=== PATIENT | female | born 1960 | race Caucasian/White ===

== ENCOUNTER 2016-10-26 01:16 | Emergency (ER) | payer BC | END 2016-10-26 01:55 | disposition home or self-care (01) | DX: L98.9 Disorder of the skin and subcutaneous tissue, unspecified (principal) ==

== ENCOUNTER 2017-04-25 19:03 | Emergency (ER) | payer BC ==
--- NOTE | 2017-04-25 20:17 | ED Physician Documentation ---
PD HPI LOWER EXT INJURY - Stated complaint Stated Complaint: RT TOE PAIN - Chief complaint Chief Complaint: General - History obtained from History obtained from: Patient - History of Present Illness PD HPI LOW EXT INJURY LOCATION: Right, Toe (middle) Type of injury: Blunt / blow (a bottle fell and landed directly on end part of toe, with marked pain and swelling. No injury to foot nor ankle.) Where injury occurred: Home Timing - onset: Today Timing - duration: Hours (1) Timing - details: Abrupt onset, Still present Worsened by: Moving, Palpating Associated symptoms: Swelling. 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 HEENT: Other Derm: Other - Present Medications Home Medications: Ambulatory Orders Medication Instructions Recorded Confirmed Clonazepam 1 tab PO .FREQ 04/14/16 04/25/17 Tramadol HCl 50 mg PO Q6H PRN #20 tablet 04/14/16 04/25/17 buPROPion [Wellbutrin Sr] 300 mg PO DAILY 04/14/16 04/25/17 Ondansetron HCl [Zofran] 4 mg PO Q6H PRN #20 tablet 04/25/17 Tramadol HCl 50 mg PO Q6H PRN #20 tablet 04/25/17 oxyCODONE [Roxicodone] 5 mg PO Q4-6H PRN #10 tablet 04/25/17 - Allergies Allergies/Adverse Reactions: Allergies Allergy/AdvReac Type Severity Reaction Status Date / Time Sulfa (Sulfonamide Allergy Nausea Verified 04/25/17 19:12 Antibiotics) - Social History Does the pt smoke?: No Smoking Status: Never smoker Does the pt drink ETOH?: No Does the pt have substance abuse?: No - Immunizations Immunizations are current?: Yes - POLST Patient has POLST: No PD ED PE NORMAL - Vitals Vital signs reviewed: Yes - General General: Alert and oriented X 3, Well developed/nourished - Derm Derm: Normal color, Warm and dry - Extremities Extremities: Other (rigth middle toe distal aspect with swelling an dsoem lifting of nailbed area without notable subungual hematoma (has arabic on nail but still can see the base).) - Neuro Neuro: No motor deficit, No sensory deficit Results - Vitals Vitals: Oxygen O2 Source Room air - Rads (name of study) toe Radiology: Prelim report reviewed, EMP read contemporaneously (comminuted distal phalanx fracture. Nonarticular. ) PD MEDICAL DECISION MAKING - ED course Complexity details: reviewed results (broken tip of toe. ), considered differential (not notable subungual hematoma per se, but tip of toe is swollen including under nailbed. No drainage attempted. ), d/w patient Departure - Departure Disposition: Home, Self Care Clinical Impression: Fracture of distal phalanx of toe Condition: Stable Record reviewed to determine appropriate education?: Yes Instructions: ED Fx Toe Closed Follow-Up: [facility] [Provider Group] Prescriptions: oxyCODONE [Roxicodone] 5 mg PO Q4-6H PRN #10 tablet PRN Reason: Pain Tramadol HCl 50 mg PO Q6H PRN #20 tablet PRN Reason: Pain Ondansetron HCl [Zofran] 4 mg PO Q6H PRN #20 tablet PRN Reason: Nausea / Vomiting Comments: Firm soled shoe or whatever is most comfortable for walking. Misha tape is less likely to help with this he can try it. Ice to the area periodically to help reduce swelling. Tramadol if needed for pain. Add oxycodone if needed for worse pain in the short-term. Use Zofran along with it to reduce nausea. This will slowly heal over 3-4 weeks. However the worst of the pain will decrease as the swelling goes down and initial healing starts, so the first week or so. Discharge Date/Time: 04/25/17 21:57
[2017-04-25] MEDS ORDERED: traMADol 50 MG TABLET PO STA ×2 (20:31→21:34)
[2017-04-25] MEDS ORDERED: traMADol 50 MG TABLET PO ONE ×2 (20:44→21:49)
[2017-04-25] MEDS ORDERED: ONDANSETRON ODT 4 MG TABLET TL STA (21:34)
[2017-04-25] MEDS ORDERED: oxyCODONE/ACET 5/325 Prepack 4 PO STA (21:34)
--- NOTE | 2017-04-25 21:36 | XRAY Preliminary Report ---
Exam: XR Toe(s) RT IMPRESSION: 1. Acute comminuted fracture of the right third distal phalanx tuft. 2. No dislocation. 3. Diffuse right third toe swelling. [facility] SITE ID: [id number]
--- NOTE | 2017-04-25 21:47 | XRAY Report ---
EXAM: RIGHT THIRD TOE RADIOGRAPHY EXAM DATE: 04/25/2017 09:06 PM. CLINICAL HISTORY: Dropped bottle of BBQ on middle toe right foot. COMPARISON: None. TECHNIQUE: 3 views. FINDINGS: Bones: Acute comminuted fracture of the right third distal phalanx tuft. Joints: Normal. No subluxations. Soft Tissues: Marked right third toe swelling. IMPRESSION: 1. Acute comminuted fracture of the right third distal phalanx tuft. 2. No dislocation. 3. Diffuse right third toe swelling. [facility] Referring Provider Line: [phone] SITE ID: [id number]
[2017-04-25] MEDS ORDERED: oxyCODONE/ACET 5/325 Prepack 4 PO ONE (21:49)
[2017-04-25] MEDS ORDERED: ONDANSETRON ODT 4 MG TABLET ONE (21:49)
[2017-04-25 21:55] VITALS: BP 116/75
== END 2017-04-25 21:57 | disposition home or self-care (01) ==
LOC: ED 19:03
DX: S92.531A Displaced fracture of distal phalanx of right lesser toe(s), initial encounter for closed fracture (principal); W20.8XXA Other cause of strike by thrown, projected or falling object, initial encounter; Y92.019 Unspecified place in single-family (private) house as the place of occurrence of the external cause
CPT/HCPCS: 73660; 99283; A9270; Q0162

== ENCOUNTER 2019-11-29 15:55 | Outpatient (CLI) | payer BC | END 2019-11-29 15:56 | disposition home or self-care (01) | LOC: COV 15:55 | PROVIDERS: ATTEND Family Medicine | DX: M79.10 Myalgia, unspecified site (principal); J02.9 Acute pharyngitis, unspecified; R43.9 Unspecified disturbances of smell and taste | CPT/HCPCS: 81599 ==

== ENCOUNTER 2020-12-10 16:59 | Outpatient (CLI) | payer BC | END 2020-12-10 17:00 | disposition home or self-care (01) | LOC: COV 16:59 | PROVIDERS: ATTEND Family Medicine | DX: Z20.822 Contact with and (suspected) exposure to COVID-19 (principal) ==

== ENCOUNTER 2021-12-30 16:10 | Outpatient (CLI) | payer BC ==
--- NOTE | 2021-12-30 16:49 | XRAY Report ---
PROCEDURE: Chest 2 View X-Ray INDICATIONS: PRE-OP FOR COSMETIC SURGERY, LIPOSUCTION TECHNIQUE: 2 view(s) of the chest. COMPARISON: None. FINDINGS: Surgical changes and devices: None. Lungs and pleura: No pleural effusions or pneumothorax. Lungs are clear. Mediastinum: Mediastinal contours are normal. Heart size is normal. Bones and chest wall: No suspicious bony abnormalities. Soft tissues appear unremarkable. IMPRESSION: Chest without acute cardiopulmonary abnormalities. No focal airspace disease. Reviewed by: Fritz Schaeffer MD on 12/30/2021 4:47 PM PDT Approved by: Fritz Schaeffer MD on 12/30/2021 4:47 PM PDT Station ID: [id number]
== END 2021-12-30 16:11 | disposition home or self-care (01) ==
LOC: DI 16:10
PROVIDERS: ATTEND Physician Assistant
DX: Z01.810 Encounter for preprocedural cardiovascular examination (principal)

== ENCOUNTER 2022-09-03 16:12 | Emergency (ER) | payer BC, OTHER ==
[2022-09-03 16:24] VITALS: BP 132/77
[2022-09-03] MEDS ORDERED: oxyCODONE 5 MG TABLET PO STA (17:08)
--- NOTE | 2022-09-03 17:12 | XRAY Report ---
PROCEDURE: Foot 3 View RT INDICATIONS: Trauma TECHNIQUE: 3 views of the foot were acquired. COMPARISON: Right third toe radiographs 04/25/2017. FINDINGS: Bones: No acute fractures or dislocations. No suspicious bony lesions. Soft tissues: No tibiotalar joint effusion. Achilles tendon appears normal. IMPRESSION: No acute fracture demonstrated. Reviewed by: Jaswinder Dsouza MD on 09/03/2022 5:10 PM [facility] Approved by: Jaswinder Dsouza MD on 09/03/2022 5:10 PM [facility] Station ID: [id number]
[2022-09-03] MEDS ORDERED: ONDANSETRON ODT 4 MG TABLET TL STA (17:20)
[2022-09-03] MEDS ORDERED: ONDANSETRON ODT 4 MG Prepack 2 TL PRN (17:25)
[2022-09-03] MEDS ORDERED: oxyCODONE/ACET 5/325 Prepack 4 PO STA (17:25)
--- NOTE | 2022-09-03 17:27 | ED Physician Documentation ---
PD HPI LOWER EXT INJURY - Stated complaint Stated Complaint: R TOE INJURY - Chief complaint Chief Complaint: Trauma Ext - History obtained from History obtained from: Patient - Additional information Additional information: Is a 62-year-old female presenting for evaluation of right middle toe pain after stubbing it against a bedpost this afternoon. She does not take a blood thinner. She has pain with ambulation.She has not tried any medications for it. Denies injuries elsewhere. 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 HEENT: Other Derm: Other - Present Medications Home Medications: Ambulatory Orders Medication Instructions Recorded Confirmed buPROPion [Wellbutrin Sr] 300 mg PO DAILY 04/14/16 08/13/17 clonazePAM [Clonazepam] 1 tab PO .FREQ 04/14/16 08/13/17 Ondansetron Odt [Zofran] 4 mg TL Q6H PRN #10 tablet 09/03/22 Oxycodone HCl/Acetaminophen 1 each PO Q6H PRN #10 tablet 09/03/22 [Percocet 5-325 mg Tablet] - Allergies Allergies/Adverse Reactions: Allergies Allergy/AdvReac Type Severity Reaction Status Date / Time Sulfa (Sulfonamide Allergy Nausea Verified 09/03/22 16:22 Antibiotics) - Social History Does the pt smoke?: No Smoking Status: Never smoker Does the pt drink ETOH?: No Does the pt have substance abuse?: No - Immunizations Immunizations are current?: Yes - POLST Patient has POLST: No PD ED PE NORMAL - General General: Alert and oriented X 3, No acute distress, Well developed/nourished - HEENT HEENT: Atraumatic - Cardiac Cardiac: Strong equal pulses - Respiratory Respiratory: No respiratory distress - Extremities Extremities: Other (Bruising, swelling to right middle toe at the proximal phalanx) - Neuro Neuro: No motor deficit, No sensory deficit Results - Vitals Vitals: Vital Signs - 24 hr 09/03/22 16:20 Temperature 36.6 C Heart Rate 89 Respiratory 16 Rate Blood Pressure 132/77 H O2 Saturation 98 Oxygen O2 Source Room air PD Medical Decision Making - ED course Complexity details: reviewed results, re-evaluated patient ED course: Patient presenting for evaluation of injury to her right middle toe. She has bruising and mild swelling. No injuries elsewhere. She is not on a blood thinner. An x-ray was obtained to evaluate for fracture or dislocation. Foot x-ray was read as negative but I have concerns for fracture and requested a dedicated toe as I feel there was a nondisplaced fracture seen on the foot x-ray that radiologist did not see.There is a toe fracture which is more clearly seen on the toe x-ray. I reviewed these results with the patient. She was placed into a jose splint. She did not want crutches. She is comfortable with plan for discharge and advised on concerning symptoms to return for. Departure - Departure Disposition: 01 Home, Self Care Clinical Impression: Toe fracture, right Qualifiers: Encounter type: initial encounter Toe: lesser toe Fracture type: closed Phalanx: proximal Fracture alignment: nondisplaced Qualified Code(s): S92.514A - Nondisplaced fracture of proximal phalanx of right lesser toe(s), initial encounter for closed fracture Condition: Stable Instructions: ED Fx Toe Closed Prescriptions: Oxycodone HCl/Acetaminophen [Percocet 5-325 mg Tablet] 1 each PO Q6H PRN #10 tablet PRN Reason: pain Ondansetron Odt [Zofran] 4 mg TL Q6H PRN #10 tablet PRN Reason: Nausea / Vomiting Comments: I believe that your x-ray shows a nondisplaced toe fracture involving your middle toe on the right.We will treat this with a jose tape to the adjacent toe.It may take several weeks for this to heal. I have sent a small amount of pain medication to [facility] in [place]. Please use this only as needed. Please have follow-up with your primary care doctor. Return to the ER with any worsening symptoms such as increased pain, swelling or any new concerns. I am prescribing a short course of narcotic pain medication for you. These are potentially dangerous and addictive medications that should be used carefully. These medications may constipate you. Take an fvhq-owk-canxtmi stool softener (docusate) twice daily with plenty of water while taking these medications. If you go 24 hours without a bowel movement, take mrwx-yfa-xkyzxao miralax, per package instructions. Do not drink or drive while taking these medications. If you received narcotic or sedating medications while in the emergency department, do not drive for 24 hours. Store this medication in a safe, secure place and out of reach of children. It is a violation of federal law to give or sell this medication to another person or to use in a manner other than prescribed. The ED will not refill narcotic prescriptions, including prescriptions lost or stolen. To dispose of unwanted medications: 1. [facility] [address] in [place] has a medication drop box. They accept prescription medications (in pill form) Wednesday through Wednesday 9:00 a.m. to 5:00 p.m. 2. [facility] [employer] accepts prescription medications (in pill form only) for disposal year round. Call for more information. 3. Contact the [facility] for the next [facility] sponsored prescription drug collection event. , [phone], or [phone]; Note that many narcotic pain relievers also contain Tylenol/acetaminophen. Please ensure that your total dose of acetaminophen from all sources does not exceed 3 g (3000 mg) per day. Discharge Date/Time: 09/03/22 18:07
--- NOTE | 2022-09-03 17:50 | XRAY Report ---
PROCEDURE: Toe(s) RT INDICATIONS: middle toe pain TECHNIQUE: 2 views of the middle toe(s) acquired. COMPARISON: Correlation is made with the accompanying foot plain films FINDINGS: Bones: There is a mildly displaced fracture seen involving the distal aspect of the proximal phalanx of the third toe. This is not clearly demonstrated on the recently performed foot plain films. Soft tissues: No suspicious soft tissue densities. IMPRESSION: Mildly displaced third toe fracture. Reviewed by: Idris Hudson MD on 09/03/2022 4:49 PM [place] Approved by: Idris Hudson MD on 09/03/2022 4:49 PM [facility] Station ID: [id number]
== END 2022-09-03 18:07 | disposition home or self-care (01) ==
LOC: ED 16:12
DX: S92.521A Displaced fracture of middle phalanx of right lesser toe(s), initial encounter for closed fracture (principal); W22.03XA Walked into furniture, initial encounter; Y92.003 Bedroom of unspecified non-institutional (private) residence as the place of occurrence of the external cause
CPT/HCPCS: 73630; 73660; 99283; A9270; Q0162

== ENCOUNTER 2022-12-10 15:50 | Outpatient (CLI) | payer SELFPAY | END 2022-12-10 15:51 | disposition home or self-care (01) | LOC: RT 15:50 | PROVIDERS: ATTEND Plastic Surgery | DX: Z01.810 Encounter for preprocedural cardiovascular examination (principal) | CPT/HCPCS: 93005 ==

== ENCOUNTER 2023-01-16 17:07 | Emergency (ER) | payer OTHER ==
[2023-01-16 17:14] VITALS: BP 134/65
--- NOTE | 2023-01-16 18:43 | ED Physician Documentation ---
PD HPI LOWER EXT INJURY - Stated complaint Stated Complaint: RT ANKLE PX - Chief complaint Chief Complaint: Ext Problem - History obtained from History obtained from: Patient, Family - History of Present Illness PD HPI LOW EXT INJURY LOCATION: Right, Ankle Type of injury: Fall, Twist Where injury occurred: Other (refuse disposal area) Timing - onset: Today Timing - duration: Minutes Timing - details: Abrupt onset, Still present Improved by: Rest, Ice, Immobilization Worsened by: Moving, Palpating Associated symptoms: Swelling. No: Weakness, Numbness, Tingling Contributing factors: No: Anticoagulated, Prior ortho surgery, Prosthetic joint Similar symptoms before: Has not had sx before Recently seen: Not recently seen - Additional information Additional information: 62-year-old Jovita Trujillo was in the back of the [employer] removing debris from the [employer] and throwing it into the dumpster when she jumped down off of the back of the [employer] and twisted her ankle. She heard a snap and she has pain and swelling to the lateral aspect of the ankle. She has been able to bear some weight on this. 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 HEENT: Other Derm: Other - Present Medications Home Medications: Ambulatory Orders Medication Instructions Recorded Confirmed buPROPion [Wellbutrin Sr] 300 mg PO DAILY 04/14/16 08/13/17 clonazePAM [Clonazepam] 1 tab PO .FREQ 04/14/16 08/13/17 Ondansetron Odt [Zofran] 4 mg TL Q6H PRN #10 tablet 09/03/22 Oxycodone HCl/Acetaminophen 1 each PO Q6H PRN #10 tablet 09/03/22 [Percocet 5-325 mg Tablet] - Allergies Allergies/Adverse Reactions: Allergies Allergy/AdvReac Type Severity Reaction Status Date / Time Sulfa (Sulfonamide Allergy Nausea Verified 01/16/23 17:14 Antibiotics) - Social History Does the pt smoke?: No Smoking Status: Never smoker Does the pt drink ETOH?: No Does the pt have substance abuse?: No - Immunizations Immunizations are current?: Yes - POLST Patient has POLST: No PD ED PE NORMAL - Vitals Vital signs reviewed: Yes (hypertensive ) - General General: Alert and oriented X 3, No acute distress, Well developed/nourished, Other (flat affect) - HEENT HEENT: Atraumatic, PERRL, EOMI - Respiratory Respiratory: No respiratory distress - Derm Derm: Normal color, Warm and dry, No rash - Extremities Extremities: Other (swelling and point tenderness to the lateral malleolus. Fair ROM of the ankle with dorsiflexion/plantar flexion. distal nv intact.NT prox 5th ) - Neuro Neuro: Alert and oriented X 3, desk reporter 2-12 intact, No motor deficit, No sensory deficit, Normal speech Eye Opening: Spontaneous Motor: Obeys Commands Verbal: Oriented GCS Score: 15 - Psych Psych: Normal mood, Normal affect Results - Vitals Vitals: Vital Signs - 24 hr 01/16/23 17:10 Temperature 36.2 C L Heart Rate 77 Respiratory 16 Rate Blood Pressure 134/65 H O2 Saturation 100 Oxygen O2 Source Room air - Rads (name of study) r ankle Relevant Findings:: Prelim report reviewed (Impression soft tissue swelling without fracture or foreign body), EMP independent interpretation of test (avulsion fracture distal fibula) PD Medical Decision Making - ED course Complexity details: considered differential, d/w patient, d/w family Reviewed Lab Results: We evaluated this patient's ankle injury with plain films of her ankle. This demonstrated the presence of a avulsion fracture of the tip. There is no widening of the mortise and there is no fracture of the proximal fifth. ED course: 62-year-old Shae Trujillo has sprained her ankle and she has an avulsion fracture of the distal fibula. There is no widening of the mortise or anything to suggest instability of the ankle. She is able to bear some weight on that she is placed into a walking boot. Departure - Departure Disposition: 01 Home, Self Care Clinical Impression: Avulsion fracture of ankle Qualifiers: Encounter type: initial encounter Fracture type: closed Laterality: right Qualified Code(s): S82.891A - Other fracture of right lower leg, initial encounter for closed fracture Condition: Stable Instructions: ED Fx Ankle Lateral Malleolus Follow-Up: Fabien Beltran MD [Provider Admit Priv/Credential] - Comments: Jovita today looks like you have an avulsion fracture of the distal fibula. This fracture appears stable on your x-rays and it is okay to use the walking boot to walk. My recommendation is to use the crutches for the next 2 to 3 days and when you are feeling more comfortable walking you will not need to use the crutches. A follow-up in 1 week is usually indicated. If you are ambulating without significant pain and the swelling has reduced and you are in a foreign country without a doctor a follow-up when you return home would be indicated. If you have worsening of your symptoms of course see the doctor there in [facility] Discharge Date/Time: 01/16/23 19:00
--- NOTE | 2023-01-16 19:29 | XRAY Report ---
PROCEDURE: Ankle 3 View RT INDICATIONS: rolled ankle TECHNIQUE: 3 views of the ankle were acquired. COMPARISON: None. FINDINGS: Bones: No fractures or dislocations. Ankle mortise is normally aligned. No suspicious bony lesions . Soft tissues: No tibiotalar joint effusion. Achilles tendon appears normal. Lateral soft tissue sw elling IMPRESSION: Soft tissue swelling without fracture or foreign body Reviewed by: Ron Spaulding MD on 01/16/2023 6:28 PM [facility] Approved by: Ron Spaulding MD on 01/16/2023 6:28 PM [facility] Station ID: [id number]
== END 2023-01-16 19:00 | disposition home or self-care (01) ==
LOC: ED 17:07
DX: S82.891A Other fracture of right lower leg, initial encounter for closed fracture (principal); X50.1XXA Overexertion from prolonged static or awkward postures, initial encounter; Y93.39 Activity, other involving climbing, rappelling and jumping off; Y92.89 Other specified places as the place of occurrence of the external cause; Z79.899 Other long term (current) drug therapy
CPT/HCPCS: 99283